=== PATIENT | female | born 1980 | race Caucasian/White ===

== ENCOUNTER 2016-12-10 16:04 | Emergency (ER) | payer OTHER ==
[2016-12-10 16:25] VITALS: BMI 26.5
--- NOTE | 2016-12-10 17:20 | PDOC ---
History of Present Illness - General Chief Complaint: Vaginal Bleeding Stated Complaint: VAGINAL BLEEDING/6 WKS Time Seen by Provider: 12/10/16 17:12 History Source: Patient - History of Present Illness Timing/Duration: reports: constant, getting worse Past History - Past Medical History Allergies/Adverse Reactions: Allergies Allergy/AdvReac Type Severity Reaction Status Date / Time No Known Allergies Allergy Verified 12/13/16 15:56 Home Medications: Ambulatory Orders Vit/Iron Fumarate/FA [ Tablet] 1 each PO DAILY 12/21/15 Asthma: No Cancer: No Cardiac Disorders: No Diabetes: No HTN: No Seizures: No Thyroid Disease: No Other medical history: denies - Suicide/Smoking/Psychosocial Hx Smoking History: Never smoked Have you smoked in the past 12 months: No Information on smoking cessation initiated: No Hx Alcohol Use: No Drug/Substance Use Hx: No Substance Use Type: None Hx Substance Use Treatment: No Review of Systems - Review of Systems Constitutional: No: Chills, Fever ABD/GI: Yes: Abdominal cramping. No: Nausea, Vomiting : No: Dysuria, Hematuria *Physical Exam - Vital Signs Last Vital Signs Temp Pulse Resp BP Pulse Ox 98.6 F 71 14 125/76 100 12/10/16 16:20 12/10/16 16:20 12/10/16 16:20 12/10/16 16:20 12/10/16 16:20 - Physical Exam General Appearance: Yes: Appropriately Dressed. No: Apparent Distress HEENT: positive: Normal Voice Neck: positive: Supple Respiratory/Chest: negative: Respiratory Distress Female Pelvic Exam: positive: vaginal bleeding (sigificant vag bleed w/ clots, os fingertip) Gastrointestinal/Abdominal: positive: Soft. negative: Tender Musculoskeletal: negative: CVA Tenderness Integumentary: positive: Dry, Warm Neurologic: positive: Fully Oriented, Alert, Normal Mood/Affect ED Treatment Course - RADIOLOGY Radiology Studies Ordered: Category Date Time Status TRANSVAGINAL US PREG [US] Stat Ultrasound 12/10/16 17:15 Ordered Medical Decision Making - Medical Decision Making 12/10/16 17:16 36 yo F, , ~6 weeks by dates, visual for first next month, here with vaginal spotting since yesterday that has been constant and worsened today. No clots. Also complaining of vague lower abdominal cramping. No dysuria, nausea, vomiting, fever or chills. See exam 1st trimester bleed R/o ectopic vs spon ab vs vag bleed in nl -T&s -beta -ua -US 12/10/16 17:40 12/10/16 18:32 Beta 259. US pending. UA w/ no e/o infxn. T&S pending 12/10/16 18:33 12/10/16 18:54 Pt signed out to LORNA Badillo pending T&S and US *DC/Admit/Observation/Transfer Diagnosis at time of Disposition: Inevitable complete miscarriage without complication - Discharge Dispostion Disposition: HOME - Referrals Referrals: Samuel Hendrickson MD [Primary Care Provider] - - Patient Instructions Printed Discharge Instructions: DI for Miscarriage, DI for Threatened Additional Instructions: Bianca- I am sorry that you are going through this. Your uterus is empty on ultrasound and your quantitative beta-HCG level is very low, (much lower than we would expect it to be at 6 weeks). These two things together most probably mean that you are in the process of completing a miscarrage. You still need to have the blood work done again in 48 hours. If the level is decreasing rather than doubling every 48 hours, then we can be certain you lost this . Please follow up with your OB Doctor on Tuesday. Return to us if any problems. Col[facility]- Dr. Biju Dangelo
[2016-12-10 17:48] LABS: PH,URINE 5.5 (5.0-8.0); URINE APPEARANCE CLEAR; URINE BILIRUBIN NEGATIVE (NEGATIVE); URINE BLOOD 3+ (NEGATIVE); URINE COLOR LT. YELLOW; URINE GLUCOSE (UA) NEGATIVE (NEGATIVE); URINE KETONE NEGATIVE (NEGATIVE); URINE LEUK ESTERASE NEGATIVE (NEGATIVE); URINE NITRITE NEGATIVE (NEGATIVE); URINE PROTEIN NEGATIVE (NEGATIVE); URINE UROBILINOGEN 0.2 mg/dL (0.2-1.0)
[2016-12-10 18:10] LABS: URINE MUCUS RARE; URINE RBC 110 /hpf (0-3); URINE WBC <1 /hpf (3-5)
--- NOTE | 2016-12-10 20:02 | PDOC ---
*Physical Exam - Vital Signs Last Vital Signs Temp Pulse Resp BP Pulse Ox 98.6 F 71 14 125/76 100 12/10/16 16:20 12/10/16 16:20 12/10/16 16:20 12/10/16 16:20 12/10/16 16:20 <Moses Marrero - Last Filed: 12/10/16 21:01> - Vital Signs Last Vital Signs Temp Pulse Resp BP Pulse Ox 98.6 F 71 14 125/76 100 12/10/16 16:20 12/10/16 16:20 12/10/16 16:20 12/10/16 16:20 12/10/16 16:20 <Biju Dangelo - Last Filed: 12/10/16 21:23> ED Treatment Course - ADDITIONAL ORDERS Additional order review: Laboratory Results 12/10/16 12/10/16 17:30 17:15 Beta HCG, Quant 259.7 Urine Color Lt. yellow Urine Appearance Clear Urine pH 5.5 Urine Protein Negative Urine Glucose (UA) Negative Urine Ketones Negative Urine Blood 3+ H Urine Nitrite Negative Urine Bilirubin Negative Urine Urobilinogen 0.2 Urine RBC 110 Urine WBC <1 Ur Epithelial Cells Rare Urine Mucus Rare - RADIOLOGY Radiograph Interpretation: 12/10/16 21:01 EXAM#: TYPE/EXAM: RESULT: [id number] US/TRANSVAGINAL US PREG HISTORY PROVIDED: Vaginal bleeding. Real time examination of the pelvis utilizing both the transabdominal and transvaginal probes demonstrates the following: The uterus is normal in size measuring 7 7 x 5.2 x 4.3 cm. No uterine masses are seen. A normal appearing endometrium of 6 mm thickness is identified. There is no sonographic evidence of a viable uterine gestation. If a very early is clinically suspected , correlation with serial beta subunit hCG levels and follow-up ultrasonography is now recommended. The ovaries are normal in size and texture with material flow documented to both ovaries. There is no evidence of adnexal masses or free pelvic fluid collections. IMPRESSION: Normal pelvic sonogram no evidence of a viable intrauterine gestation. Clinical and laboratory correlation and follow-up ultrasonography recommended. Please see above discussion. Reported By: Evaristo Gonzalez MD 12/10/16 1950 <Moses Marrero - Last Filed: 12/10/16 21:01> - ADDITIONAL ORDERS Additional order review: Laboratory Results 12/10/16 12/10/16 17:30 17:15 Beta HCG, Quant 259.7 Urine Color Lt. yellow Urine Appearance Clear Urine pH 5.5 Urine Protein Negative Urine Glucose (UA) Negative Urine Ketones Negative Urine Blood 3+ H Urine Nitrite Negative Urine Bilirubin Negative Urine Urobilinogen 0.2 Urine RBC 110 Urine WBC <1 Ur Epithelial Cells Rare Urine Mucus Rare <Biju Dangelo - Last Filed: 12/10/16 21:23> Medical Decision Making - Medical Decision Making 12/10/16 20:15 Vaginal bleeding being treated as a threatened miscarriage. Pending Ultrasound results, will make decision based on results. <Moses Marrero - Last Filed: 12/10/16 21:01> *DC/Admit/Observation/Transfer - Attestations Scribe Attestion: 12/10/16 20:17 Documentation prepared by Moses Marrero, acting as medical health researcher for Biju Dangelo DO. <Moses Marrero - Last Filed: 12/10/16 21:01> - Discharge Dispostion Admit: No - Attestations Physician Attestion: 12/10/16 20:02 I, Dr. Biju Dangelo, attest that this document has been prepared under my direction and personally reviewed by me in its entirety. I further attest, that it accurately reflects all work, treatment, procedures and medical decision -making performed by me. <Biju Dangelo - Last Filed: 12/10/16 21:23> Diagnosis at time of Disposition: Inevitable complete miscarriage without complication - Discharge Dispostion Disposition: HOME Condition at time of disposition: Good - Referrals Referrals: Samuel Hendrickson MD [Primary Care Provider] - - Patient Instructions Printed Discharge Instructions: DI for Miscarriage, DI for Threatened Additional Instructions: Bianca- I am sorry that you are going through this. Your uterus is empty on ultrasound and your quantitative beta-HCG level is very low, (much lower than we would expect it to be at 6 weeks). These two things together most probably mean that you are in the process of completing a miscarrage. You still need to have the blood work done again in 48 hours. If the level is decreasing rather than doubling every 48 hours, then we can be certain you lost this . Please follow up with your OB Doctor on Tuesday. Return to us if any problems. Best- Dr. Biju Dangelo - Post Discharge Activity
[2016-12-10 22:38] VITALS: BP 124/74; PULSE 73; TEMP 98.2
== END 2016-12-10 21:38 | disposition home or self-care (01) ==
LOC: JER 16:04
DX: O26.891 Other specified pregnancy related conditions, first trimester (principal); N93.9 Abnormal uterine and vaginal bleeding, unspecified; O03.9 Complete or unspecified spontaneous abortion without complication; Z3A.01 Less than 8 weeks gestation of pregnancy
CPT/HCPCS: 36415; 76817-TC; 81003; 81015; 84702; 87086; 99282-25

== ENCOUNTER 2016-12-13 15:53 | Emergency (ER) | payer OTHER ==
[2016-12-13 15:59] VITALS: BP 113/75; PULSE 63; TEMP 98.6; BMI 26.5
--- NOTE | 2016-12-13 17:33 | PDOC ---
History of Present Illness - General Chief Complaint: Revisit, Lab Variance Stated Complaint: REVISIT Time Seen by Provider: 12/13/16 17:27 History Source: Patient Exam Limitations: No Limitations - History of Present Illness Initial Comments: 12/13/16 17:33 36 yr female presents to ER for follow up beta HCG. Pt seen in ER 3 days ago for vaginal bleeding positive . US showed no IUP pt here for repeat beta HCG, pt states decreased vaginal bleeding with mild camping no dizzyness. Past History - Past Medical History Allergies/Adverse Reactions: Allergies Allergy/AdvReac Type Severity Reaction Status Date / Time No Known Allergies Allergy Verified 12/13/16 15:56 Home Medications: Ambulatory Orders Vit/Iron Fumarate/FA [ Tablet] 1 each PO DAILY 12/21/15 Asthma: No Cancer: No Cardiac Disorders: No Diabetes: No HTN: No Seizures: No Thyroid Disease: No Other medical history: denies - Reproductive History (#): 3 Para: 2 - Immunization History Immunization Up to Date: Yes - Suicide/Smoking/Psychosocial Hx Smoking History: Never smoked Have you smoked in the past 12 months: No Information on smoking cessation initiated: No Hx Alcohol Use: No Drug/Substance Use Hx: No Substance Use Type: None Hx Substance Use Treatment: No Review of Systems - Review of Systems Able to Perform ROS?: Yes Is the patient limited Georgian proficient: No Constitutional: No: Symptoms Reported HEENTM: No: Symptoms Reported Respiratory: No: Symptoms reported Cardiac (ROS): No: Symptoms Reported ABD/GI: No: Symptoms Reported : Yes: Symptoms Reported *Physical Exam - Vital Signs Last Vital Signs Temp Pulse Resp BP Pulse Ox 98.6 F 63 20 113/75 98 12/13/16 15:57 12/13/16 15:57 12/13/16 15:57 12/13/16 15:57 12/13/16 15:57 - Physical Exam General Appearance: Yes: Nourished, Appropriately Dressed HEENT: positive: EOMI, YOON Respiratory/Chest: positive: Lungs Clear, Normal Breath Sounds Cardiovascular: positive: Regular Rhythm, Regular Rate Gastrointestinal/Abdominal: positive: Normal Bowel Sounds, Soft. negative: Tender Extremity: positive: Normal Range of Motion Integumentary: positive: Normal Color, Dry, Warm Neurologic: positive: Fully Oriented, Alert, Normal Mood/Affect, Normal Response , Motor Strength 5/ ED Treatment Course - ADDITIONAL ORDERS Additional order review: Laboratory Results 12/13/16 16:00 Beta HCG, Quant 26.8 Medical Decision Making - Medical Decision Making 12/13/16 17:44 cc: needs repeat beta HCG pt has mild cramping light flow of vaginal bleeding has decreased in the past 48hrs pt states no abd pain or back pain repeat is 26 today trending down from 259. US reviewed from previous visit, no evidence of IUP. pt has follow up with this week will dc home discussed in detail miscarriage discharge instructions. pt understands all questions asked and answered. pt states she is A positive blood type. 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
== END 2016-12-13 17:34 | disposition home or self-care (01) ==
LOC: JERFT 15:53
DX: O02.1 Missed abortion (principal); Z3A.01 Less than 8 weeks gestation of pregnancy
CPT/HCPCS: 36415; 84702; 99281-25

== ENCOUNTER 2017-12-23 09:25 | Inpatient (IN) | payer OTHER ==
[2017-12-23] MEDS ORDERED: DEXTROSE 5%-LACTATED RINGERS 1,000 ML IV SCH (09:30)
[2017-12-23] MEDS ORDERED: AMPICILLIN SODIUM 2 GM VIAL ONE (10:17)
[2017-12-23 10:28] LABS: BASO % 0.3 % (0-2.0); EOS % 0.3 % (0-4.5); HEMATOCRIT 39.4 % (32.4-45.2); HEMOGLOBIN 13.4 GM/dL (10.7-15.3); LYMPH % 13.2 % (8-40); MCH 32.1 pg (25.7-33.7); MCHC 33.9 g/dl (32.0-36.0); MEAN CELL VOLUME 94.6 fl (80-96); MEAN PLT VOLUME 10.3 fl (7.5-11.1); MONO % 4.7 % (3.8-10.2); NEUT % 81.5 % (42.8-82.8); PLATELET COUNT 171 K/MM3 (134-434); RBC 4.16 M/mm3 (3.60-5.2); WHITE BLOOD COUNT 11.8 K/mm3 (4.0-10.0)
[2017-12-23] MEDS ORDERED: AMPICILLIN - 2 GM in SODIUM CHLORIDE 100 ML IVPB ONE (10:30)
[2017-12-23 10:47] VITALS: BMI 32.2
[2017-12-23 11:01] LABS: INR 0.89 (0.83-1.09); PROTHROMBIN TIME (PATIENT) 10.5 SEC (9.7-13.0)
[2017-12-23 11:07] LABS: ANION GAP 10 MMOL/L (8-16); BLOOD UREA NITROGEN 6 mg/dL (7-18); CALCIUM 8.9 mg/dL (8.5-10.1); CHLORIDE 104 mmol/L (98-107); CO2 23 mmol/L (21-32); CREATININE 0.5 mg/dL (0.55-1.3); GLUCOSE,RANDOM 89 mg/dL (74-106); POTASSIUM 4.3 mmol/L (3.5-5.1); SODIUM 137 mmol/L (136-145)
[2017-12-23] MEDS ORDERED: TUBERCULIN PPD 5 TU/0.1ML SYRINGE (IN PATIENT USE ONLY) ID ONE (13:00)
[2017-12-23] MEDS ORDERED: AMPICILLIN SODIUM 1 GM VIAL ONE ×2 (14:20→18:22)
[2017-12-23] MEDS: AMPICILLIN - 1 GM in SODIUM CHLORIDE 100 ML IVPB SCH ×2 (14:20→18:20)
--- NOTE | 2017-12-23 14:22 | HP ---
Past Medical History - Primary Care Physician PCP:: Mook Goodman - Admission Chief Complaint: 41 weeks, labor, AMA History of Present Illness: 37 yo f g 4 p2002 edc by sono 12/14/17 c/o contraction, no rom, no bleeding, fhr cat 1, irregular contraction, cx 4 cm 80 vx -2 , bulging membrane History Source: Patient Limitations to Obtaining History: No Limitations - Past Medical History ...: 4 ...Para: 2 ...Term: 2 ...: 0 ...Spon : 1 ...Induced : 0 ...Multiple Gestation: 0 ...LMP: 03/10/17 ... Weeks Gestation by Dates: 41.1 ...EDC by Dates: 12/15/17 ...EDC by Sono: 12/14/17 - Past Surgical History Past Surgical History: Yes: None Hx Myomectomy: No Hx Transabdominal Cerclage: No - Smoking History Smoking history: Never smoked Have you smoked in the past 12 months: No - Alcohol/Substance Use Hx Alcohol Use: No - Social History Usual Living Arrangement: Yes: With Spouse History of Recent Travel: No Home Medications - Allergies Allergies/Adverse Reactions: Allergies Allergy/AdvReac Type Severity Reaction Status Date / Time No Known Allergies Allergy Verified 12/18/17 12:04 - Home Medications Home Medications: Ambulatory Orders Vit/Iron Fum/Folic AC [ Tablet] 1 each PO DAILY 12/21/15 Review of Systems - Review of Systems Constitutional: reports: No Symptoms Eyes: reports: No Symptoms HENT: reports: No Symptoms Neck: reports: No Symptoms Cardiovascular: reports: No Symptoms Respiratory: reports: No Symptoms Gastrointestinal: reports: No Symptoms Genitourinary: reports: No Symptoms Breasts: reports: No Symptoms Reported Musculoskeletal: reports: No Symptoms Integumentary: reports: No Symptoms Neurological: reports: No Symptoms Endocrine: reports: No Symptoms Hematology/Lymphatic: reports: No Symptoms Psychiatric: reports: No Symptoms Physical Exam - Maternity Vital Signs: Vital Signs Temperature 97.5 F L 12/23/17 12:00 Pulse Rate 86 12/23/17 13:00 Respiratory Rate 20 12/23/17 13:00 Blood Pressure 122/76 12/23/17 13:00 O2 Sat by Pulse Oximetry (%) Constitutional: Yes: Well Nourished, No Distress, Calm Eyes: Yes: WNL, Conjunctiva Clear, EOM Intact HENT: Yes: WNL, Atraumatic, Normocephalic Neck: Yes: WNL, Supple, Trachea Midline Cardiovascular: Yes: WNL, Regular Rate and Rhythm Breast(s): Yes: WNL - Abdominal Exam/OB Fundal Height: 40 Number of Fetuses: Single Presentation: Vertex Contractions: Yes Regularity: Irregular Intensity: Mod/Strong Monitor Mode: External Heart Rate Location: [facility] Category: I Accelerations: Uniform Decelerations: None - Vaginal Exam/OB Vaginal Bleediing: No Speculum Exam: No Dilatation (cm): 4 cm Effacement (%): 80 Amniotic Membrane Status: Bulging Presentation: Vertex/Position Station: -2 - Physical Exam Musculoskeletal: Yes: WNL Extremities: Yes: WNL Edema: Yes Edema: LLE: Trace, RLE: Trace Deep Tendon Reflex Grade: Normal +2 Psychiatric: Yes: WNL - Labs Lab Results: CBC, BMP 12/23/17 10:00 12/23/17 10:00 Hemorrhage Risk Assessment - Risk Factors Medium Risk Factors: Yes: Multiple gestation Risk Score: 1 Risk Level: Medium Risk Problem List - Problems (1) with 41 completed weeks gestation Code(s): Z3A.41 - 41 WEEKS GESTATION OF (2) First stage of labor established Code(s): YNH4062 - (3) Advanced maternal age (AMA) in Code(s): EXV8234 - (4) Large for gestational age fetus Code(s): RXS3450 - Assessment/Plan plan admit, fhm, wants epidural LGA management discussed , c/s vs vaginal delivery, wants have trial of vaginal delivery
--- NOTE | 2017-12-23 14:25 | PN ---
Progress Note (short form) - Note Progress Note: cx 4 cm , bulging membrane , arom clear , fhr cat 1 Problem List - Problems (1) with 41 completed weeks gestation Code(s): Z3A.41 - 41 WEEKS GESTATION OF (2) First stage of labor established Code(s): ASB8959 - (3) Advanced maternal age (AMA) in Code(s): ETF7883 - (4) Large for gestational age fetus Code(s): JIJ2036 -
[2017-12-23] MEDS ORDERED: FENTANYL/BUPIVACAINE/NS/PF - PCEA - 50 ML DISP.SYRIN EP ONE (14:26)
[2017-12-23] MEDS ORDERED: NALOXONE HCL 0.4 MG/ML VIAL IVPUSH PRN (14:40)
[2017-12-23] MEDS ORDERED: LIDO 2%/EPI 1:200000 PRESRVFRE (20 ML SDVIAL) ONE (14:43)
[2017-12-23] MEDS ORDERED: BUPIVACAINE HCL/PF 0.25% (2.5MG/ML) 10 ML VIAL ONE (14:43)
[2017-12-23] MEDS ORDERED: ELECTROLYTE-148 SOLN 1,000 ML IV SCH (14:45)
[2017-12-23] MEDS ORDERED: OXYTOCIN 30 UNITS in 0.9% NS 30 UNIT/500 ML INFUS.BAG IVPB SCH (15:00)
[2017-12-23] MEDS: FENTANYL/BUPIVACAINE/NS/PF - PCEA - 50 ML DISP.SYRIN EP SCH (15:00)
[2017-12-23] MEDS ORDERED: OXYTOCIN 30 UNITS in 0.9% NS 30 UNIT/500 ML INFUS.BAG IVPB ONE (15:31)
[2017-12-23] MEDS ORDERED: OXYTOCIN 20 UNITS in 0.9% NS 20 UNIT/1,000 ML INFUS.BAG IV ONE (18:07)
[2017-12-23] MEDS ORDERED: LIDOCAINE HCL 1% PRESERVATIVE FREE - 30ML VIAL ONE (18:07)
--- NOTE | 2017-12-23 18:40 | PN ---
Progress Note (short form) - Note Progress Note: cx 9 cm 100 vx 0 , mr, fhr cat 1, anticipating vaginal delivery Problem List - Problems (1) with 41 completed weeks gestation Code(s): Z3A.41 - 41 WEEKS GESTATION OF (2) First stage of labor established Code(s): DPX8234 - (3) Advanced maternal age (AMA) in Code(s): ORR6698 - (4) Large for gestational age fetus Code(s): IPO0475 -
[2017-12-23] MEDS: OXYTOCIN 20 UNITS in 0.9% NS 20 UNIT/1,000 ML INFUS.BAG IV SCH (19:25)
[2017-12-23] MEDS ORDERED: METHYLERGONOVINE MALEATE 0.2 MG/1 ML AMP IM PRN (20:02)
[2017-12-23] MEDS ORDERED: BISACODYL 10 MG SUPP.RECT RC PRN (20:02)
[2017-12-23] MEDS ORDERED: WITCH HAZEL 50% (TUCKS) 40 PAD/JAR PAD TP PRN (20:02)
[2017-12-23] MEDS ORDERED: BENZOCAINE 28 GM HEMORRHOIDAL OINTMENT TP PRN (20:02)
[2017-12-23] MEDS ORDERED: BENZOCAINE 20% 57 GM BOTTLE TP PRN (20:02)
[2017-12-23] MEDS ORDERED: D5W-LR W/ 20 UNITS OXYTOCIN 20 UNIT/1,000 ML INFUS.BAG IV SCH (20:15)
[2017-12-23] MEDS: ACETAMINOPHEN 325 MG TABLET (FP) PO PRN (20:30)
[2017-12-23] MEDS: IBUPROFEN 600 MG TABLET (FP) PO PRN (20:30)
[2017-12-23] MEDS ORDERED: IBUPROFEN 600 MG TABLET (FP) PO ONE (20:30)
[2017-12-23] MEDS ORDERED: ACETAMINOPHEN 325 MG TABLET (FP) ONE (20:30)
[2017-12-23] MEDS: FERROUS SO4 325 MG TABLET (FP) PO SCH (23:00)
[2017-12-24] MEDS: IBUPROFEN 600 MG TABLET (FP) PO PRN ×3 (03:53→20:07)
[2017-12-24] MEDS: ACETAMINOPHEN 325 MG TABLET (FP) PO PRN ×3 (03:54→20:07)
[2017-12-24] MEDS: AMPICILLIN - 1 GM in SODIUM CHLORIDE 100 ML IVPB SCH (06:45)
[2017-12-24 08:03] LABS: BASO % 0.4 % (0-2.0); EOS % 0.4 % (0-4.5); HEMATOCRIT 32.9 % (32.4-45.2); HEMOGLOBIN 10.9 GM/dL (10.7-15.3); MCH 31.7 pg (25.7-33.7); MCHC 33.1 g/dl (32.0-36.0); MEAN PLT VOLUME 10.3 fl (7.5-11.1); MONO % 6.9 % (3.8-10.2); NEUT % 78.3 % (42.8-82.8); PLATELET COUNT 142 K/MM3 (134-434); RBC 3.43 M/mm3 (3.60-5.2); WHITE BLOOD COUNT 14.3 K/mm3 (4.0-10.0)
[2017-12-24] MEDS: PRENATAL VITAMINS W/ FOLIC ACID TABLET (FP) PO SCH (09:17)
[2017-12-24] MEDS: FERROUS SO4 325 MG TABLET (FP) PO SCH ×2 (09:17→22:00)
[2017-12-24] MEDS ORDERED: CEFAZOLIN 1 GM in DEXTROSE 5%-WATER - 50 ML IVPB ONE (10:36)
[2017-12-24] MEDS ORDERED: ceFAZolin SODIUM 1 GM VIAL ONE (10:53)
[2017-12-24] MEDS ORDERED: DEXTROSE 5%-WATER - 50 ML IVPB ONE (10:53)
--- NOTE | 2017-12-24 16:38 | PN ---
Progress Note (short form) - Note Progress Note: pod 1 s/p c/s . doing well, no c/o CBC, BMP 12/24/17 06:40 12/23/17 10:00 Last Vital Signs Temp Pulse Resp BP Pulse Ox 98 F 66 18 104/74 98 12/24/17 07:50 12/24/17 07:50 12/24/17 07:50 12/24/17 07:50 12/23/17 20:40 abdomen soft, no distension, no cva no cva incision dty, clean no calf tenderness plan ambulate , advance diet , pain management Problem List - Problems (1) with 41 completed weeks gestation Code(s): Z3A.41 - 41 WEEKS GESTATION OF (2) First stage of labor established Code(s): MYJ7407 - (3) Advanced maternal age (AMA) in Code(s): ZIV1329 - (4) Large for gestational age fetus Code(s): VRR2198 -
[2017-12-24] MEDS: OXYTOCIN 20 UNITS in 0.9% NS 20 UNIT/1,000 ML INFUS.BAG IV SCH (21:37)
[2017-12-24] MEDS: FENTANYL/BUPIVACAINE/NS/PF - PCEA - 50 ML DISP.SYRIN EP SCH (21:38)
[2017-12-24] MEDS ORDERED: SENNOSIDES/DOCUSATE COMBO (SENNA PLUS) TABLET (UD) PO PRN (22:00)
[2017-12-25] MEDS: ACETAMINOPHEN 325 MG TABLET (FP) PO PRN ×2 (03:15→09:50)
[2017-12-25] MEDS: IBUPROFEN 600 MG TABLET (FP) PO PRN ×2 (03:15→09:49)
[2017-12-25] MEDS: FERROUS SO4 325 MG TABLET (FP) PO SCH (09:39)
[2017-12-25] MEDS: PRENATAL VITAMINS W/ FOLIC ACID TABLET (FP) PO SCH (09:39)
--- NOTE | 2017-12-25 09:56 | DS ---
Physical Exam-TEACHER EMOTIONALLY IMPAIRED Vital Signs: Vital Signs Temperature 98.0 F 12/24/17 22:00 Pulse Rate 86 12/24/17 22:00 Respiratory Rate 18 12/24/17 22:00 Blood Pressure 130/80 12/24/17 22:00 O2 Sat by Pulse Oximetry (%) 98 12/23/17 20:40 Constitutional: Yes: Well Nourished, No Distress, Calm Eyes: Yes: WNL, Conjunctiva Clear, EOM Intact HENT: Yes: WNL, Atraumatic, Normocephalic Neck: Yes: WNL, Supple, Trachea Midline Cardiovascular: Yes: WNL, Regular Rate and Rhythm Respiratory: Yes: WNL, Regular, CTA Bilaterally Gastrointestinal: Yes: WNL ...Rectal Exam: Yes: WNL Renal/: Yes: WNL ....Post : Yes: Uterus firm, Uterus non-tender, Slight lochia rubra Breast(s): Yes: WNL Musculoskeletal: Yes: WNL Extremities: Yes: WNL Edema: No Integumentary: Yes: WNL Neurological: Yes: WNL, Alert, Oriented ...Motor Strength: WNL Psychiatric: Yes: WNL, Alert, Oriented Labs: CBC, BMP 12/24/17 06:40 12/23/17 10:00 Delivery - Delivery Vaginal Delivery: Spontaneous (no complication) Type of Anesthesia: Epidural Episiotomy/Laceration: 2nd degree EBL (cc): 300 Delivery, Single - Stages of Labor Date 1st Stage Initiatied: 12/23/17 Time 1st Stage Initiated: 14:12 Date 2nd Stage Initiated: 12/23/17 Time 2nd Stage Initiated: 18:10 Date of Delivery: 12/23/17 Time of Delivery: 19:22 Time Placenta Delivered: 19:24 Placenta: Yes: Spontaneous - Condition of Clip On Sunglasses Inspector/Labor Specialist Present: No Infant Gender: Female Weight: 9 lb 3 oz Position: Left, OA Total Hours ROM (Hrs/Mins): 5h 10m - 1 Minute Total Score: 9 5 Minutes Total Score: 9 - Feeding Plan Initial Plan: Exclusive throughout hospitalization Discharge Summary Reason For Visit: LABOR ADMISSION Current Active Problems Advanced maternal age (AMA) in (Acute) First stage of labor established (Acute) Large for gestational age fetus (Acute) with 41 completed weeks gestation (Acute) Procedures: Principal: Other Procedures: second degree repair Hospital Course: yrinary retension, resolved spontaneously after epidural effect wear off Condition: Good - Instructions Diet, Activity, Other Instructions: regular diet, folow up office 4 weeks, if fever pain, heavy vaginal bleeding call MD Referrals: Mook Goodman MD [Staff Physician] - Disposition: HOME - Home Medications Comprehensive Discharge Medication List: Ambulatory Orders Vit/Iron Fum/Folic AC [ Tablet] 1 each PO DAILY 12/21/15 Ibuprofen [Motrin -] 600 mg PO TID #21 tablet 12/23/17
[2017-12-25 10:41] VITALS: BP 103/54; PULSE 85; TEMP 98.8
== END 2017-12-25 12:45 | disposition home or self-care (01) | DRG 807 ==
LOC: JLDR 09:25 → J3W 21:45
PROVIDERS: ADMIT Obstetrics & Gynecology; ATTEND Obstetrics & Gynecology
PROC: 10E0XZZ Delivery of Products of Conception, External Approach (ICD-10-PCS; principal; 2017-12-23)
PROC: 0KQM0ZZ Repair Perineum Muscle, Open Approach (ICD-10-PCS; 2017-12-23)
PROC: 0W8NXZZ Division of Female Perineum, External Approach (ICD-10-PCS; 2017-12-23)
DX: O70.1 Second degree perineal laceration during delivery (principal); Z37.0 Single live birth; O36.63X0 Maternal care for excessive fetal growth, third trimester, not applicable or unspecified; Z3A.41 41 weeks gestation of pregnancy
CPT/HCPCS: 36415; 59409; 80048; 85025; 85610; 85730; 86593; 86850; 86900; 86901; 90686; G0008